=== PATIENT | female | born 1990 | race Caucasian/White ===

== ENCOUNTER → 2019-06-16 | Outpatient (CLI) | payer OTHER ==
[~2019-06-16] MED LIST: ACEDIPPM PO; ALBU90OI; Advil200 M1 PO; BCP; CEPH500 PO; CITA10S; CYCL10 PO; DIFLUCAN PO; DIPH50 PO; ESCI5; ESTNORT; FAMO20; FLUSAL1005; GABA100 PO; HYDACE5; HYDACE5 PO; HYDGUAL120 PO; HYDHCL25; IBUP800 PO; Keflex500 MG PO; LORA1; NAPR500 PO; NAUSEA MED; NO ROUTINE MEDS; Naprosyn500 MG PO; Norco 5-325 Ta1 EACH PO; OMEP10ER; ORTHO TRICYCLEN PO; ORTHO TRICYCLINE; OXYACE5T PO; PROC5 PO; PROM25; PROM25 PO; PSEU120ER PO; Percocet 5-3251 EACH PO; RANI150 PO; RXTRAM50 PO; SERT50; SERT50 PO; SUCR1 PO; SULTRIDS PO; SULTRISS PO; TRAM50 PO; TRAZ50 PO; Ultram50 MG PO; Zofran Odt4 MG SL; Zofran8 MG PO; [UNRECOGNIZED DRUG - REMARK]; [UNRECOGNIZED DRUG - REMARK]
== END | disposition home or self-care (01) ==
LOC: LAB SHORT 16:12 → LAB 16:12
DX: R39.15 Urgency of urination (principal)
CPT/HCPCS: 87077; 87086; 87186

== ENCOUNTER → 2020-04-24 | Outpatient (CLI) | payer OTHER | END | disposition home or self-care (01) | LOC: LAB 13:58 → LAB SHORT 13:58 | DX: N39.0 Urinary tract infection, site not specified (principal) | CPT/HCPCS: 87086 ==

== ENCOUNTER → 2020-06-10 | Outpatient (CLI) | payer OTHER ==
[~2020-06-10] MED LIST changes: +DICY20 PO
[2020-06-11 09:50] LABS: Candida species (DNA Probe) Positive (NEGATIVE); G. vaginalis (DNA Probe) Positive (NEGATIVE); T. vaginalis (DNA Probe) Negative (NEGATIVE)
[2020-06-12 08:10] LABS: HIV SCREEN 4TH GENERATION WRFX Non Reactive (Non Reactive)
[2020-06-12 23:10] LABS: CHLAMYDIA TRACHOMATIS, NAA Negative (Negative); NEISSERIA GONORRHOEAE, NAA Negative (Negative)
== END | disposition home or self-care (01) ==
LOC: LAB 13:40 → LAB SHORT 13:40
PROVIDERS: Nurse Practitioner
DX: N89.8 Other specified noninflammatory disorders of vagina (principal); R30.0 Dysuria; Z20.2 Contact with and (suspected) exposure to infections with a predominantly sexual mode of transmission
CPT/HCPCS: 86592; 87077; 87086; 87186; 87389; 87480; 87491; 87510; 87591; 87660

== ENCOUNTER 2020-07-18 13:27 | Emergency (ER) | payer OTHER ==
[~2020-07-18] VITALS: Ht 154.9 cm; Wt 88.5 kg
[2020-07-18 14:00] LABS: Source, Urine Clean Catch
[2020-07-18 14:06] LABS: BASOPHILS ABSOLUTE AUTO 0.04 K/mm3 (0.00-0.23); BASOPHILS PERCENT AUTO 0 % (0-2); EOSINOPHILS ABSOLUTE AUTO 0.05 K/mm3 (0.00-0.68); EOSINOPHILS PERCENT AUTO 0 % (0-6); Hematocrit 40.1 % (33.0-51.0); Hemoglobin 13.1 g/dL (11.5-16.0); IMMATURE GRAN ABSOLUTE AUTO 0.03 K/mm3 (0.00-0.10); IMMATURE GRAN PERCENT AUTO 0 % (0-1); LYMPHOCYTES ABSOLUTE AUTO 2.83 K/mm3 (0.84-5.20); LYMPHOCYTES PERCENT AUTO 23 % (21-46); MONOCYTES ABSOLUTE AUTO 0.73 K/mm3 (0.16-1.47); MONOCYTES PERCENT AUTO 6 % (4-13); Mean Corpuscular HGB 29.8 pg (26.0-34.0); Mean Corpuscular HGB Conc 32.7 g/dL (31.5-36.5); Mean Corpuscular Volume 91 fL (80-100); Mean Platelet Volume 10.8 fL (9.1-12.4); NEUTROPHILS ABSOLUTE AUTO 8.51 K/mm3 (1.96-9.15); NEUTROPHILS PERCENT AUTO 70 % (41-73); Platelet Count 333 K/mm3 (150-400); RDW Coefficient Variation 13.3 % (11.7-14.2); RDW Standard Deviation 45.1 fL (35.1-46.3); White Blood Cell Count 12.19 K/mm3 (4.00-11.30)
[2020-07-18 14:14] LABS: Appearance, Urine Clear (Clear); Bilirubin, Urine Neg (Neg); Blood, Urine Neg (Neg); Color, Urine Yellow (P-Yellow); Glucose Qualitative, Urine Neg (Neg); Ketones, Urine Neg (Neg); Leukocyte Esterase, Urine Neg (Neg); Nitrite, Urine Neg (Neg); Protein, Urine Neg (Neg); Specific Gravity, Urine 1.005 (1.003-1.022); Urobilinogen, Urine NORM (Normal); pH, Urine 6.5 (5.0-8.0)
[2020-07-18 14:27] LABS: Alanine Aminotransfer (ALT/SGP 37 U/L (12-78); Albumin, Blood 3.9 g/dL (3.4-5.0); Albumin/Globulin Ratio 0.9 (0.8-1.8); Alk Phos 86 U/L (50-136); Anion Gap 7 mmol/L (6-16); Aspartate Aminotrans (AST/SGOT 20 U/L (12-37); Bilirubin, Total 0.4 mg/dL (0.1-1.0); Blood Urea Nitrogen 5 mg/dL (8-24); Bun/Creatinine Ratio 8.1 (12.0-20.0); CO2, Blood 26 mmol/L (21-32); Calcium, Blood 8.9 mg/dL (8.5-10.1); Chloride, Blood 105 mmol/L (98-108); Creatinine, Blood 0.62 mg/dL (0.40-1.00); Globulin, Blood 4.2 g/dL (2.2-4.0); Glomerular Filtration Rate >60 (60-); Glucose, Blood 73 mg/dL (70-99); Potassium, Blood 3.3 mmol/L (3.5-5.5); Sodium, Blood 138 mmol/L (136-145); Total Protein, Blood 8.1 g/dL (6.4-8.2)
== END 2020-07-18 18:40 | disposition home or self-care (01) ==
LOC: ER 13:27
PROVIDERS: Emergency Medicine
DX: O21.9 Vomiting of pregnancy, unspecified (principal); O99.891 Other specified diseases and conditions complicating pregnancy; R51.9 Headache, unspecified; R10.9 Unspecified abdominal pain; Z3A.01 Less than 8 weeks gestation of pregnancy; Z88.5 Allergy status to narcotic agent; Z91.09 Other allergy status, other than to drugs and biological substances; Z88.8 Allergy status to other drugs, medicaments and biological substances
CPT/HCPCS: 36415; 76801; 76857; 80053; 81003; 81025; 83690; 84702; 85025; 86900; 86901; 96361; 96374; 96375; 99284-25; A9270; J2405; J2550; J7120

== ENCOUNTER 2020-07-23 10:26 | Emergency (ER) | payer OTHER ==
[~2020-07-23] VITALS: Ht 154.9 cm; Wt 88.5 kg
[2020-07-23 11:11] LABS: BASOPHILS ABSOLUTE AUTO 0.03 K/mm3 (0.00-0.23); BASOPHILS PERCENT AUTO 0 % (0-2); EOSINOPHILS ABSOLUTE AUTO 0.02 K/mm3 (0.00-0.68); EOSINOPHILS PERCENT AUTO 0 % (0-6); Hematocrit 41.6 % (33.0-51.0); Hemoglobin 13.7 g/dL (11.5-16.0); IMMATURE GRAN ABSOLUTE AUTO 0.03 K/mm3 (0.00-0.10); IMMATURE GRAN PERCENT AUTO 0 % (0-1); LYMPHOCYTES ABSOLUTE AUTO 2.49 K/mm3 (0.84-5.20); LYMPHOCYTES PERCENT AUTO 23 % (21-46); MONOCYTES ABSOLUTE AUTO 0.66 K/mm3 (0.16-1.47); MONOCYTES PERCENT AUTO 6 % (4-13); Mean Corpuscular HGB Conc 32.9 g/dL (31.5-36.5); Mean Corpuscular Volume 91 fL (80-100); Mean Platelet Volume 10.6 fL (9.1-12.4); NEUTROPHILS ABSOLUTE AUTO 7.63 K/mm3 (1.96-9.15); NEUTROPHILS PERCENT AUTO 70 % (41-73); Platelet Count 335 K/mm3 (150-400); RDW Coefficient Variation 13.4 % (11.7-14.2); RDW Standard Deviation 45.4 fL (35.1-46.3); Red Blood Cell Count 4.57 M/mm3 (3.80-5.20); White Blood Cell Count 10.86 K/mm3 (4.00-11.30)
[2020-07-23 11:20] LABS: Alanine Aminotransfer (ALT/SGP 45 U/L (12-78); Albumin, Blood 4.1 g/dL (3.4-5.0); Alk Phos 90 U/L (50-136); Anion Gap 6 mmol/L (6-16); Aspartate Aminotrans (AST/SGOT 31 U/L (12-37); Bilirubin, Total 0.5 mg/dL (0.1-1.0); Blood Urea Nitrogen 6 mg/dL (8-24); Bun/Creatinine Ratio 10.6 (12.0-20.0); CO2, Blood 27 mmol/L (21-32); Chloride, Blood 107 mmol/L (98-108); Creatinine, Blood 0.57 mg/dL (0.40-1.00); Globulin, Blood 4.1 g/dL (2.2-4.0); Glomerular Filtration Rate >60 (60-); Glucose, Blood 92 mg/dL (70-99); Sodium, Blood 140 mmol/L (136-145); Total Protein, Blood 8.2 g/dL (6.4-8.2)
[2020-07-23] MEDS ORDERED: PHENERGAN25 MG PR (11:27)
[2020-07-23] MEDS ORDERED: PROM25 PO (11:27)
== END 2020-07-23 12:30 | disposition home or self-care (01) ==
LOC: ER 10:26
PROVIDERS: Emergency Medicine
DX: O21.0 Mild hyperemesis gravidarum (principal); F41.9 Anxiety disorder, unspecified; F32.9 Major depressive disorder, single episode, unspecified; Z3A.01 Less than 8 weeks gestation of pregnancy; Z88.5 Allergy status to narcotic agent; Z91.09 Other allergy status, other than to drugs and biological substances; Z88.8 Allergy status to other drugs, medicaments and biological substances
CPT/HCPCS: 36415; 80053; 85025; 96361; 96374; 96376; 99284-25; J2550; J7120

== ENCOUNTER 2021-02-05 01:55 | Inpatient (IN) | payer OTHER ==
[~2021-02-05] VITALS: Ht 154.9 cm; Wt 98.2 kg
[~2021-02-05 01:55] MED LIST changes: +PHENERGAN25 MG PR
[2021-02-05] MEDS ORDERED: PRENATAL TABLE1 EAC2 PO (02:10)
[2021-02-05 02:27] LABS: BASOPHILS ABSOLUTE AUTO 0.04 K/mm3 (0.00-0.23); BASOPHILS PERCENT AUTO 0 % (0-2); EOSINOPHILS ABSOLUTE AUTO 0.47 K/mm3 (0.00-0.68); EOSINOPHILS PERCENT AUTO 4 % (0-6); Hematocrit 35.7 % (33.0-51.0); Hemoglobin 11.9 g/dL (11.5-16.0); IMMATURE GRAN ABSOLUTE AUTO 0.08 K/mm3 (0.00-0.10); IMMATURE GRAN PERCENT AUTO 1 % (0-1); LYMPHOCYTES PERCENT AUTO 23 % (21-46); MONOCYTES ABSOLUTE AUTO 0.82 K/mm3 (0.16-1.47); MONOCYTES PERCENT AUTO 6 % (4-13); Mean Corpuscular HGB Conc 33.3 g/dL (31.5-36.5); Mean Corpuscular Volume 90 fL (80-100); Mean Platelet Volume 10.3 fL (9.1-12.4); NEUTROPHILS ABSOLUTE AUTO 8.96 K/mm3 (1.96-9.15); NEUTROPHILS PERCENT AUTO 67 % (41-73); Platelet Count 311 K/mm3 (150-400); RDW Coefficient Variation 14.2 % (11.7-14.2); RDW Standard Deviation 46.5 fL (35.1-46.3); Red Blood Cell Count 3.97 M/mm3 (3.80-5.20); White Blood Cell Count 13.47 K/mm3 (4.00-11.30)
[2021-02-05 03:17] LABS: SARS-Cov-2 (COVID-19) PCR, MMC NEGATIVE (NEGATIVE)
--- NOTE | 2021-02-05 08:45 | NUR ---
ASSUMED PT CARE. NB TO ROOM AT 0745 PER RN BHARAT ARMIJO. RN IN ROOM, WILL CHECK BACK SHORTLY.
--- NOTE | 2021-02-05 10:00 | NUR ---
ATTEMPT BRF, USED SHIELD, NB SLEEPY HAD A FEW SUCKS FOR 1 MIN. ATTEMPTED 10 MIN FEED. THEN WRAPPED FOR DAD TO HOLD. MOM INSTRUCTED HOW TO USE PUMP. RN EXPLAINED THAT WE WILL ASSIST HER NEEDED, NOT HAVE NB FEED LONGER THAN 10-15 MIN. RN THEN SYRING FED NB WITH 3CC EBM AND 5CC SIMULAC VIA FINGER FEED WITH FEEDING TUBE AND ORAL SYRINGE WHILE NB IN DADS ARMS. ENCOURGED MOM TO REST BETWEEN FEEDS AND WE WOUDL START THE PROCESS AGAIN AROUND 1300.
--- NOTE | 2021-02-05 10:45 | NUR ---
PT PUMPED 15 MIN, EXPRESSED 3CC COLSTRUM AND THEN FED TO NB.
--- NOTE | 2021-02-05 13:30 | NUR ---
IN TO DO NEXT FEED, RN ENCOURGED PARENTS TO SET ALARM FOR FEEDS EVERY 3 HOURS. DAD MARY, SHOWN HOW TO PUT TOGETHER AND TAKE APART PUMP PIECES FRO CLEANING. FEEDING PROCESS SHOWN AND EXPLAINED TO PARENTS AND BHARAT COOPER. SHE IS TO ASSUME CARE.
[2021-02-06] MEDS ORDERED: IBU800 M1 PO (14:26)
--- NOTE | 2021-02-06 18:46 | NUR ---
No acute changes t/o shift. Printed d/c instructions reviewed w/pt. Questions answered to her satisfaction. Pt d/c'd to boarder status
== END 2021-02-06 19:00 | disposition home or self-care (01) | DRG 806 ==
LOC: OBS 01:55 → BC 01:55 → OBS 02:15 → BC 02:16
PROVIDERS: ADMIT Obstetrics & Gynecology
PROC: 10E0XZZ Delivery of Products of Conception, External Approach (ICD-10-PCS; principal; 2021-02-05)
PROC: 0HQ9XZZ Repair Perineum Skin, External Approach (ICD-10-PCS; 2021-02-05)
PROC: 3E0R3BZ Introduction of Anesthetic Agent into Spinal Canal, Percutaneous Approach (ICD-10-PCS; 2021-02-05)
PROC: 00HU33Z Insertion of Infusion Device into Spinal Canal, Percutaneous Approach (ICD-10-PCS; 2021-02-05)
DX: O42.113 Preterm premature rupture of membranes, onset of labor more than 24 hours following rupture, third trimester (principal); O99.324 Drug use complicating childbirth; Z37.0 Single live birth; Z3A.35 35 weeks gestation of pregnancy; Z20.822 Contact with and (suspected) exposure to COVID-19; F12.11 Cannabis abuse, in remission; O70.0 First degree perineal laceration during delivery
CPT/HCPCS: 36415; 51702; 85025; 86850; 86900; 86901; 88307; A9270; J0290; J2001; J2405; J2590; J3010; J3430; J7120; U0004

== ENCOUNTER → 2021-07-01 | Outpatient (CLI) | payer OTHER ==
[~2021-07-01] MED LIST changes: +IBU800 M1 PO; +PRENATAL TABLE1 EAC2 PO
== END | disposition home or self-care (01) ==
LOC: LAB SHORT 16:39 → LAB 16:39
DX: R30.0 Dysuria (principal)
CPT/HCPCS: 87077; 87086; 87186

== ENCOUNTER → 2021-11-18 | Outpatient (CLI) | payer OTHER | LOC: LAB SHORT 10:47 → LAB 10:47 | DX: N39.0 Urinary tract infection, site not specified (principal); R30.0 Dysuria | CPT/HCPCS: 87077; 87086; 87186 ==

== ENCOUNTER → 2022-12-17 | Outpatient (CLI) | payer OTHER ==
[~2022-12-17] MED LIST changes: +AVIANE-28 TABL1 EACH PO
[2022-12-17 19:43] LABS: Adenovirus Not Detected (NOT DETECT); Bordetella pertussis Not Detected (NOT DETECT); Chlamydophila pneumoniae Not Detected (NOT DETECT); Coronavirus 229E Not Detected (NOT DETECT); Coronavirus HKU1 Not Detected (NOT DETECT); Coronavirus NL63 Not Detected (NOT DETECT); Coronavirus OC43 Not Detected (NOT DETECT); Human Metapneumovirus Not Detected (NOT DETECT); Human Rhinovirus/Enterovirus Not Detected (NOT DETECT); Influenza A/2009-H1 Not Detected (NOT DETECT); Influenza A/H1 Not Detected (NOT DETECT); Influenza A/H3 Not Detected (NOT DETECT); Influenza B Not Detected (NOT DETECT); Mycoplasma pneumoniae Not Detected (NOT DETECT); Parainfluenza Virus 1 Not Detected (NOT DETECT); Parainfluenza Virus 2 Not Detected (NOT DETECT); Parainfluenza Virus 3 Not Detected (NOT DETECT); Parainfluenza Virus 4 Not Detected (NOT DETECT); Respiratory Syncytial Virus Not Detected (NOT DETECT); SARS-Cov-2 (COVID-19), BioFire Not Detected (NOT DETECT)
== END | disposition home or self-care (01) ==
LOC: LAB 15:10 → LAB SHORT 15:10
PROVIDERS: Nurse Practitioner
DX: J06.9 Acute upper respiratory infection, unspecified (principal); R05.1 Acute cough
CPT/HCPCS: 0202U

== ENCOUNTER 2023-01-28 15:30 | Emergency (ER) | payer OTHER ==
[~2023-01-28] VITALS: Ht 154.9 cm; Wt 87.1 kg
[2023-01-28 15:55] VITALS: BP 143/84
== END 2023-01-28 18:53 | disposition home or self-care (01) ==
LOC: ER 15:30
DX: O20.0 Threatened abortion (principal); Z3A.01 Less than 8 weeks gestation of pregnancy; Z88.5 Allergy status to narcotic agent; Z88.8 Allergy status to other drugs, medicaments and biological substances; Z91.048 Other nonmedicinal substance allergy status; Z79.899 Other long term (current) drug therapy
CPT/HCPCS: 76801; 76817; 84702

== ENCOUNTER → 2023-01-30 | Outpatient (CLI) | payer OTHER | END | disposition home or self-care (01) | LOC: LAB 13:09 → LAB SHORT 13:09 | DX: Z32.01 Encounter for pregnancy test, result positive (principal) | CPT/HCPCS: 84702 ==

== ENCOUNTER 2023-03-26 11:10 | Emergency (ER) | payer OTHER ==
[~2023-03-26] VITALS: Ht 154.9 cm; Wt 83.5 kg
[2023-03-26] MEDS ORDERED: PRENATAL TABLE1 EAC2 PO (11:54)
[2023-03-26 11:55] LABS: BASOPHILS ABSOLUTE AUTO 0.02 K/mm3 (0.00-0.23); BASOPHILS PERCENT AUTO 0 % (0-2); EOSINOPHILS ABSOLUTE AUTO 0.06 K/mm3 (0.00-0.68); EOSINOPHILS PERCENT AUTO 1 % (0-6); Hematocrit 40.9 % (33.0-51.0); Hemoglobin 14.1 g/dL (11.5-16.0); IMMATURE GRAN ABSOLUTE AUTO 0.02 K/mm3 (0.00-0.10); IMMATURE GRAN PERCENT AUTO 0 % (0-1); LYMPHOCYTES ABSOLUTE AUTO 2.06 K/mm3 (0.84-5.20); LYMPHOCYTES PERCENT AUTO 24 % (21-46); MONOCYTES ABSOLUTE AUTO 0.43 K/mm3 (0.16-1.47); MONOCYTES PERCENT AUTO 5 % (4-13); Mean Corpuscular HGB 30.6 pg (26.0-34.0); Mean Corpuscular HGB Conc 34.5 g/dL (31.5-36.5); Mean Corpuscular Volume 89 fL (80-100); Mean Platelet Volume 10.1 fL (9.1-12.4); NEUTROPHILS ABSOLUTE AUTO 6.19 K/mm3 (1.96-9.15); NEUTROPHILS PERCENT AUTO 71 % (41-73); Platelet Count 309 K/mm3 (150-400); RDW Coefficient Variation 13.7 % (11.7-14.2); RDW Standard Deviation 44.1 fL (35.1-46.3); Red Blood Cell Count 4.61 M/mm3 (3.80-5.20); White Blood Cell Count 8.78 K/mm3 (4.00-11.30)
[2023-03-26 12:38] LABS: Albumin, Blood 3.6 g/dL (3.4-5.0); Albumin/Globulin Ratio 0.9 (0.8-1.8); Bilirubin, Total 0.3 mg/dL (0.1-1.0); Bun/Creatinine Ratio 13.2 (12.0-20.0); Calcium, Blood 8.9 mg/dL (8.5-10.1); Creatinine, Blood 0.45 mg/dL (0.40-1.00); Globulin, Blood 4.2 g/dL (2.2-4.0); Potassium, Blood 3.8 mmol/L (3.5-5.5); Total Protein, Blood 7.8 g/dL (6.4-8.2)
[2023-03-26 13:57] LABS: Source, Urine Clean Catch
[2023-03-26 14:40] LABS: Bilirubin, Urine Neg (Neg); Blood, Urine Neg (Neg); Color, Urine Yellow (P-Yellow); Glucose Qualitative, Urine Neg (Neg); Ketones, Urine 4+ (Neg); Leukocyte Esterase, Urine 1+ (Neg); Nitrite, Urine Neg (Neg); Protein, Urine 1+ (Neg); Specific Gravity, Urine 1.015 (1.003-1.022); Urobilinogen, Urine 1+ (Normal); pH, Urine 6.5 (5.0-8.0)
[2023-03-26 14:55] LABS: Appearance, Urine Hazy (Clear); Bacteria Many /hpf; Red Blood Cells, Urine Not Seen /hpf (0-2); Squamous Epithelial Cells Mod /hpf (Few)
[2023-03-26] MEDS ORDERED: CEPH500 PO (15:38)
[2023-03-26] MEDS ORDERED: DOXYLAMINE-PYR1 EAC1 PO (15:38)
[2023-03-26 16:00] VITALS: BP 126/84
== END 2023-03-26 16:25 | disposition home or self-care (01) ==
LOC: ER 11:10
PROVIDERS: Student in an Organized Health Care Education/Training Program
DX: O23.41 Unspecified infection of urinary tract in pregnancy, first trimester (principal); N39.0 Urinary tract infection, site not specified; Z88.5 Allergy status to narcotic agent; Z91.048 Other nonmedicinal substance allergy status; Z88.8 Allergy status to other drugs, medicaments and biological substances; Z3A.12 12 weeks gestation of pregnancy
CPT/HCPCS: 80053; 81001; 84702; 85025; 86900; 86901; 87086; 96361; 96374; 99284-25; A9270; J2765; J7030

== ENCOUNTER 2023-08-28 16:56 | Observation (INO) | payer OTHER ==
[~2023-08-28] VITALS: Ht 154.9 cm; Wt 97.3 kg
[~2023-08-28 16:56] MED LIST changes: +DOXYLAMINE-PYR1 EAC1 PO
[2023-08-28 17:03] VITALS: BP 116/76
[2023-08-28 19:10] VITALS: BP 114/69
[2023-08-28] MEDS ORDERED: NIFE10 PO (21:32)
[2023-08-28] MEDS ORDERED: NIFE30ER PO (21:32)
[2023-08-28 22:16] VITALS: BP 134/67
[2023-08-28 22:58] LABS: Candida species (DNA Probe) Positive (NEGATIVE); G. vaginalis (DNA Probe) Negative (NEGATIVE); T. vaginalis (DNA Probe) Negative (NEGATIVE)
[2023-08-28 23:05] VITALS: BP 123/70
[2023-08-29 05:00] VITALS: BP 118/69
[2023-08-29 06:22] VITALS: BP 106/57
[2023-08-29 06:37] VITALS: BP 117/67
[2023-08-29 07:14] VITALS: BP 125/72
== END 2023-08-29 08:50 | disposition home or self-care (01) ==
LOC: OBS 16:56 → BC 16:56 → OBS 21:39 → BC 21:41
PROVIDERS: ADMIT Family Medicine
DX: O47.03 False labor before 37 completed weeks of gestation, third trimester (principal); Z3A.34 34 weeks gestation of pregnancy
CPT/HCPCS: 59025; 76815; 76817; 81003; 82731; 87081; 87150; 87480; 87510; 87660; 96360; 96361; 96372; A9270; G0378; J3105; J7120

== ENCOUNTER 2023-09-17 11:15 | Inpatient (IN) | payer OTHER ==
[2023-09-17] VITALS (34 sets, daily range): BP systolic 121–149; BP diastolic 57–99
[~2023-09-17] VITALS: Ht 154.9 cm; Wt 100.0 kg
[~2023-09-17 11:15] MED LIST changes: +NIFE10 PO; +NIFE30ER PO
[2023-09-17 13:01] LABS: BASOPHILS ABSOLUTE AUTO 0.04 K/mm3 (0.00-0.23); BASOPHILS PERCENT AUTO 0 % (0-2); EOSINOPHILS ABSOLUTE AUTO 0.12 K/mm3 (0.00-0.68); EOSINOPHILS PERCENT AUTO 1 % (0-6); Hematocrit 35.1 % (33.0-51.0); Hemoglobin 12.3 g/dL (11.5-16.0); IMMATURE GRAN ABSOLUTE AUTO 0.09 K/mm3 (0.00-0.10); IMMATURE GRAN PERCENT AUTO 1 % (0-1); LYMPHOCYTES ABSOLUTE AUTO 2.22 K/mm3 (0.84-5.20); LYMPHOCYTES PERCENT AUTO 18 % (21-46); MONOCYTES ABSOLUTE AUTO 0.82 K/mm3 (0.16-1.47); MONOCYTES PERCENT AUTO 7 % (4-13); Mean Corpuscular Volume 88 fL (80-100); NEUTROPHILS ABSOLUTE AUTO 8.83 K/mm3 (1.96-9.15); NEUTROPHILS PERCENT AUTO 73 % (41-73); RDW Coefficient Variation 13.5 % (11.7-14.2); RDW Standard Deviation 43.8 fL (35.1-46.3); Red Blood Cell Count 3.97 M/mm3 (3.80-5.20); White Blood Cell Count 12.12 K/mm3 (4.00-11.30)
[2023-09-17 13:55] LABS: Mean Platelet Volume 9.6 fL (9.1-12.4); Platelet Count 301 K/mm3 (150-400)
[2023-09-18 03:07] VITALS: BP 130/82
[2023-09-18 09:22] VITALS: BP 126/76
[2023-09-18 10:56] VITALS: BP 138/68
[2023-09-18 12:45] VITALS: BP 117/72
--- NOTE | 2023-09-18 18:16 | NUR ---
ATTEMPTED TO GET PT AFTERNOON VITALS AROUND 1630 AND 1800. MOM REMAINS IN NURSERY VISITING NB. REPORTS SHE IS TOLERATING PAIN WELL AND BLEEDING IS MINIMAL.
[2023-09-18 20:27] VITALS: BP 131/80
[2023-09-18 23:55] VITALS: BP 130/90
[2023-09-19 04:24] VITALS: BP 127/75
[2023-09-19 07:41] VITALS: BP 121/81
[2023-09-19 11:03] VITALS: BP 128/75
== END 2023-09-19 14:48 | disposition home or self-care (01) | DRG 806 ==
LOC: OBS 11:15 → BC 11:17 → OBS 11:20 → BC 11:20
PROVIDERS: ADMIT Obstetrics & Gynecology
PROC: 10E0XZZ Delivery of Products of Conception, External Approach (ICD-10-PCS; principal; 2023-09-17)
PROC: 3E0R3BZ Introduction of Anesthetic Agent into Spinal Canal, Percutaneous Approach (ICD-10-PCS; 2023-09-17)
PROC: 00HU33Z Insertion of Infusion Device into Spinal Canal, Percutaneous Approach (ICD-10-PCS; 2023-09-17)
DX: O42.02 Full-term premature rupture of membranes, onset of labor within 24 hours of rupture (principal); O99.324 Drug use complicating childbirth; Z37.0 Single live birth; F12.90 Cannabis use, unspecified, uncomplicated; Z3A.37 37 weeks gestation of pregnancy; Z88.5 Allergy status to narcotic agent; Z88.8 Allergy status to other drugs, medicaments and biological substances; Z91.048 Other nonmedicinal substance allergy status; Z90.49 Acquired absence of other specified parts of digestive tract; Z79.899 Other long term (current) drug therapy; Z87.440 Personal history of urinary (tract) infections
CPT/HCPCS: 36415; 51702; 85025; 85049; 86850; 86900; 86901; A9270; J1885; J2590; J3010; J7120